=== PATIENT | male | born 1980 | race American Indian/Alaskan Native ===

== ENCOUNTER 2018-04-29 08:36 | Emergency (ER) | payer OTHER ==
[2018-04-29 08:45] VITALS: RESP 20; O2SAT 99
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
--- NOTE | 2018-04-29 10:19 | RAD ---
Date of service: 04/29/2018 PROCEDURE: Cervical Spine Radiographs. HISTORY: Pain. COMPARISON: None available. FINDINGS: BONES: There is normal alignment of the cervical vertebral bodies. There is normal cervical lordosis. There is no acute fracture or traumatic anterior listhesis. The craniocervical junction is normal. The atlantoaxial joint is normal. DISC SPACES: There is multilevel degenerative disc disease from C4-5 to C6-7 with anterior spurring, reduced disc heights and multilevel facet arthropathy, worse at C6-7. The craniocervical junction is normal. The atlantoaxial joint is normal. SOFT TISSUES: Normal. No prevertebral soft tissue swelling. OTHER FINDINGS: None. IMPRESSION: Multilevel degenerative disc disease, worse at C6-7. No acute fracture or traumatic anterior listhesis.
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
[2018-04-29 11:05] VITALS: BP 153/94; PULSE 93; TEMP 98.2
--- NOTE | 2018-04-30 21:32 | CARD ---
APPROVED REPORT Date of service: 04/29/2018 EKG Measurement Heart [id number] <Conclusion> Normal sinus rhythm T wave abnormality, consider inferolateral ischemia Abnormal ECG
== END 2018-04-29 11:04 | disposition home or self-care (01) ==
LOC: C.ER 08:36
DX: S13.4XXA Sprain of ligaments of cervical spine, initial encounter (principal); S43.402A Unspecified sprain of left shoulder joint, initial encounter; V49.49XA Driver injured in collision with other motor vehicles in traffic accident, initial encounter; W22.11XA Striking against or struck by driver side automobile airbag, initial encounter; Y92.410 Unspecified street and highway as the place of occurrence of the external cause